=== PATIENT | female | born 1940 | race Caucasian/White ===

== ENCOUNTER 2016-08-23 16:39 | Emergency (ER) | payer MEDICARE, OTHER ==
[~2016-08-23] VITALS: Ht 170.2 cm; Wt 65.0 kg
[~2016-08-23 16:39] MED LIST: AMLO2.5T PO; ASPI81 PO; ATOR40TA PO; NITR.4 SL; PLAV75TA PO; VENL75XR PO; ZOVI200C24 PO
[2016-08-23 16:41] VITALS: BP 208/81; PULSE 56; RESP 14; TEMP 98.1; O2SAT 97
== END 2016-08-23 18:45 | disposition left against medical advice (07) ==
LOC: NED 16:39
DX: Z04.1 Encounter for examination and observation following transport accident (principal)
CPT/HCPCS: 99281

== ENCOUNTER → 2016-11-18 | Outpatient (CLI) | payer MEDICARE, OTHER ==
[~2016-11-18] MED LIST changes: +ASPI-110 PO; +ATOR40TA16 PO; +LIPI20TA PO; +LISI-515 PO; +NITR0.4S SL; +PLAV75TA29 PO; +ZOVI400T PO
[2016-11-18 13:13] LABS: HEMATOCRIT 39.3 % (35.0-46.0); MEAN CORPUSCULAR HEMOGLOBIN 33.4 PG (27.0-34.0); MEAN CORPUSCULAR HGB CONC 34.4 % (32.0-36.0); PLATELET COUNT 243 TH/MM3 (150-450); RED BLOOD COUNT 4.05 MIL/MM3 (4.00-5.30); RED CELL DISTRIBUTION WIDTH 13.6 % (11.6-17.2); REVIEW FLAG FINAL; WHITE BLOOD COUNT 4.5 TH/MM3 (4.0-11.0)
[2016-11-18 13:20] LABS: ANION GAP 5 MEQ/L (5-15); AST (GOT) 30 U/L (15-37); BICARBONATE 29.8 MEQ/L (21.0-32.0); BLOOD UREA NITROGEN 16 MG/DL (7-18); CHLORIDE 102 MEQ/L (98-107); GLOMERULAR FILTRATION RATE 66 ML/MIN (>89); GLUCOSE,FASTING 80 MG/DL (74-99); POTASSIUM 4.2 MEQ/L (3.5-5.1); SODIUM (NA) 137 MEQ/L (136-145)
[2016-11-18 13:25] LABS: ALKALINE PHOSPHATASE 107 U/L (45-117); ALT (GPT) 37 U/L (10-53); HDL CHOLESTEROL 71.3 MG/DL (40.0-60.0); LDL CHOLESTEROL 89 MG/DL (0-99); TOTAL BILIRUBIN ADULT 0.5 MG/DL (0.2-1.0)
== END ==
LOC: PLAB 10:51
PROVIDERS: ATTEND Family Medicine
DX: E78.2 Mixed hyperlipidemia (principal); Z86.2 Personal history of diseases of the blood and blood-forming organs and certain disorders involving the immune mechanism
CPT/HCPCS: 36415; 80053; 80061; 85027

== ENCOUNTER 2016-12-12 12:48 | Observation (INO) | payer MEDICARE, OTHER ==
[~2016-12-12] VITALS: Ht 172.7 cm; Wt 68.4 kg
[2016-12-12] VITALS (8 sets, daily range): BP systolic 130–172; BP diastolic 68–98; PULSE 49–98; RESP 18–20; TEMP 96–98.3; O2SAT 97–98
[~2016-12-12 12:48] MED LIST changes: -ASPI-110 PO; -ATOR40TA16 PO; -LIPI20TA PO; -LISI-515 PO; -NITR0.4S SL; -PLAV75TA29 PO; -ZOVI400T PO
[2016-12-12] MEDS ORDERED: ASPI-110 PO (13:07)
[2016-12-12] MEDS ORDERED: LISI-515 PO (13:07)
[2016-12-12] MEDS ORDERED: ATOR40TA16 PO (13:07)
[2016-12-12] MEDS ORDERED: NITR0.4S SL (13:07)
[2016-12-12] MEDS ORDERED: ZOVI400T PO (13:07)
[2016-12-12] MEDS ORDERED: VENL75XR PO (13:07)
[2016-12-12] MEDS ORDERED: PLAV75TA29 PO (13:07)
--- NOTE | 2016-12-12 13:14 | PD ---
HPI Chief Complaint: Chest Pain Time Seen by Provider: 13:04 Travel History International Travel<30 days: No Contact w/Intl Traveler<30days: No Traveled to known affect area: No History of Present Illness HPI 75yo F with PMH of CAD s/p cardiac stent, Takasubo here with chest tightness that started about an hour ago. Pt took one sublingual nitro which helped with the chest pain. Pain is left sided, constant and nonradiating. Denies any fever, sob, cough, n/v, abdominal pain, focal weakness or numbness. PFSH Past Medical History Hx Anticoagulant Therapy: Yes Arthritis: Yes Anxiety: Yes Depression: Yes Heart Rhythm Problems: Yes (BRADYCARDIA) Cancer: No Cardiac Catheterization: Yes (2005, 2006, 2011, 05/01) Cardiovascular Problems: Yes High Cholesterol: Yes Chest Pain: Yes Diabetes: No Endocrine: No Gastrointestinal Disorders: Yes (intermit acid reflux) Hiatal Hernia: Yes Hypertension: Yes Psychiatric: Yes Respiratory: Yes (pulm htn) Thyroid Disease: No Influenza Vaccination: Yes ?: Not Past Surgical History Abdominal Surgery: Yes Cardiac Surgery: No Ear Surgery: Yes Endocrine Surgery: No Eye Surgery: No Genitourinary Surgery: Yes (CYSTOCELE, RECTOCELE 1997) Gynecologic Surgery: Yes (HYSTERECTOMY) Hysterectomy: Yes (1982) Neurologic Surgery: No Oral Surgery: No Thoracic Surgery: No Other Surgery: Yes Social History Alcohol Use: No Tobacco Use: No Substance Use: No Allergies-Medications (Allergen,Severity, Reaction): Coded Allergies: No Known Allergies (Verified , 12/12/16) Reported Meds & Prescriptions Reported Meds & Active Scripts Active Reported Effexor XR 24 HR (Venlafaxine HCl) 75 Mg Cap 75 Mg PO HS Aspirin 81 (Aspirin) 81 Mg Tabdr 81 Mg PO DAILY Zovirax (Acyclovir) 400 Mg Tab 400 Mg PO TID Plavix (Clopidogrel Bisulfate) 75 Mg Tab 75 Mg PO DAILY Atorvastatin (Atorvastatin Calcium) 40 Mg Tab 40 Mg PO HS Nitrostat SL (Nitroglycerin) 0.4 Mg Subl 0.4 Mg SL DIRECTED PRN 1 tablet under the tongue as needed for chest pain. Repeat every 5 minutes for a total of 3 DOSES or call 911 if NO relief. Lisinopril 20 Mg Tab 20 Mg PO DAILY Review of Systems Except as stated in HPI: all other systems reviewed are Neg Physical Exam Narrative GENERAL: 75yo F not in distress. SKIN: Focused skin assessment warm/dry. HEAD: Atraumatic. Normocephalic. EYES: Pupils equal and round. No scleral icterus. No injection or drainage. ENT: No nasal bleeding or discharge. Mucous membranes pink and moist. NECK: Trachea midline. No JVD. CARDIOVASCULAR: Regular rate and rhythm. No murmur appreciated. RESPIRATORY: No accessory muscle use. Clear to auscultation. Breath sounds equal bilaterally. GASTROINTESTINAL: Abdomen soft, non-tender, nondistended. MUSCULOSKELETAL: No obvious deformities. No clubbing. No cyanosis. No edema. NEUROLOGICAL: Awake and alert. No obvious cranial nerve deficits. Motor grossly within normal limits. Normal speech. PSYCHIATRIC: Appropriate mood and affect; insight and judgment normal. Data Data Last Documented VS Vital Signs Date Time Temp Pulse Resp B/P Pulse Ox O2 Delivery O2 Flow Rate FiO2 12/12/16 15:24 58 18 144/73 98 Room Air 12/12/16 12:58 98.3 Orders Basic Metabolic Panel (Bmp) (12/12/16 13:04) Ckmb (Isoenzyme) Profile (12/12/16 13:04) Complete Blood Count With Diff (12/12/16 13:04) Magnesium (Mg) (12/12/16 13:04) Prothrombin Time / Inr (Pt) (12/12/16 13:04) Act Partial Throm Time (Ptt) (12/12/16 13:04) Troponin I (12/12/16 13:04) Chest, Single Ap (12/12/16 13:04) Ecg Monitoring (12/12/16 13:04) Bilateral Bp Monitoring (12/12/16 13:04) Iv Access Insert/Monitor (12/12/16 13:04) Oximetry (12/12/16 13:04) Oxygen Administration (12/12/16 13:04) Aspirin (Aspirin) (12/12/16 13:15) Sodium Chloride 0.9% Flush (Ns Flush) (12/12/16 13:15) CKMB (12/12/16 15:17) CKMB% (12/12/16 15:17) Admit Order (Ed Use Only) (12/12/16 15:56) Labs Laboratory Tests Test 5/29/17 5/29/17 13:05 15:17 White Blood Count 8.3 TH/MM3 Red Blood Count 4.31 MIL/MM3 Hemoglobin 14.3 GM/DL Hematocrit 41.4 % Mean Corpuscular Volume 96.2 FL Mean Corpuscular Hemoglobin 33.2 PG Mean Corpuscular Hemoglobin 34.5 % Concent Red Cell Distribution Width 12.3 % Platelet Count 273 TH/MM3 Mean Platelet Volume 8.2 FL Neutrophils (%) (Auto) 66.4 % Lymphocytes (%) (Auto) 22.7 % Monocytes (%) (Auto) 8.0 % Eosinophils (%) (Auto) 1.9 % Basophils (%) (Auto) 1.0 % Neutrophils # (Auto) 5.4 TH/MM3 Lymphocytes # (Auto) 1.9 TH/MM3 Monocytes # (Auto) 0.7 TH/MM3 Eosinophils # (Auto) 0.2 TH/MM3 Basophils # (Auto) 0.1 TH/MM3 CBC Comment DIFF FINAL Differential Comment Prothrombin Time 10.4 SEC Prothromb Time International 0.9 RATIO Ratio Activated Partial 24.8 SEC Thromboplast Time Sodium Level 137 MEQ/L Potassium Level 4.1 MEQ/L Chloride Level 104 MEQ/L Carbon Dioxide Level 26.1 MEQ/L Anion Gap 7 MEQ/L Blood Urea Nitrogen 18 MG/DL Creatinine 0.77 MG/DL Estimat Glomerular Filtration 73 ML/MIN Rate Random Glucose 86 MG/DL Calcium Level 8.8 MG/DL Magnesium Level 2.4 MG/DL Total Creatine Kinase 107 U/L Creatine Kinase MB 3.3 NG/ML Troponin I LESS THAN 0.02 NG/ML MDM Medical Decision Making Medical Screen Exam Complete: Yes Emergency Medical Condition: Yes Interpretation(s) EKG: Tachycardia at 109bpm. Normal axis. TWI V2. Mild ST depression in V4-V6. Differential Diagnosis ACS vs. Pneumonia vs. GERD vs. musculoskeletal pain Narrative Course 75yo F with CAD s/p stent (follows with Dr. Albarran) presents to the ED with chest tightness. Pt's pain resolved after 1 sublingual nitro. Pt had last cardiac cath 04/2016 and plan was to do stress test this summer. Pt has not had recent stress test. Labs reviewed, no leukocytosis. Troponin negative. CXR showed no acute cardiopulmonary abnormality. Pt has been chest pain free since her nitro. Pt given aspirin 325mg PO here. Discussed with Dr. Mora and accepted to his service for chest pain work up with serial EKG and cardiac enzymes. Likely cardiac stress test. Pt agrees with plan. Diagnosis Primary Impression: Chest pain Qualified Code: R07.9 - Chest pain, unspecified type Admitting Information Admitting Physician Requests: Sally Hicks DO December 12, 2016 13:14
[2016-12-12] MEDS ORDERED: ASPIRIN 325 MG TAB PO ONE (13:15)
[2016-12-12] MEDS: SODIUM CHLORIDE 0.9% FLUSH 10 ML FLUSH IVF PRN ×2 (13:18→21:26)
[2016-12-12 13:19] LABS: AUTOMATED NEUTROPHIL # 5.4 TH/MM3 (1.8-7.7); BASOPHIL # 0.1 TH/MM3 (0-0.2); EOSINOPHIL # 0.2 TH/MM3 (0-0.4); EOSINOPHIL % 1.9 % (0.0-4.0); HEMATOCRIT 41.4 % (35.0-46.0); HEMO FLAGS DIFF FINAL; LYMPH % 22.7 % (9.0-44.0); LYMPHOCYTE # 1.9 TH/MM3 (1.0-4.8); MEAN CELL VOLUME 96.2 FL (80.0-100.0); MEAN CORPUSCULAR HEMOGLOBIN 33.2 PG (27.0-34.0); MEAN CORPUSCULAR HGB CONC 34.5 % (32.0-36.0); NEUT % 66.4 % (16.0-70.0); PLATELET COUNT 273 TH/MM3 (150-450); RED BLOOD COUNT 4.31 MIL/MM3 (4.00-5.30); RED CELL DISTRIBUTION WIDTH 12.3 % (11.6-17.2); WHITE BLOOD COUNT 8.3 TH/MM3 (4.0-11.0)
[2016-12-12 13:43] LABS: APTT (PATIENT) 24.8 SEC (24.3-30.1); INTERNATIONAL NORMALIZED RATIO 0.9 RATIO; PROTHROMBIN TIME - PATIENT 10.4 SEC (9.8-11.6)
--- NOTE | 2016-12-12 14:00 | RADHPO ---
EXAM DATE/TIME: 12/12/2016 13:45 [facility] COMPARISON: CHEST SINGLE AP, May 09, 2016, 11:23. INDICATIONS : Chest pain. MEDICAL HISTORY : Cardiovascular disease. 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 ENCOUNTER: Initial ACUITY: 1 day PAIN SCORE: 0/10 LOCATION: FINDINGS: Portable AP view of the chest demonstrates a normal-sized cardiac silhouette. Lungs are hyperinflated . EKG lines overlie the patient. No effusion, consolidation, or pneumothorax is visualized. Bones and soft tissues demonstrate no acute finding. CONCLUSION: No acute cardiopulmonary abnormality is identified. Yogi Wisdom MD on December 12, 2016 at 13:57 Board Certified Radiologist. This report was verified electronically.
[2016-12-12 15:37] LABS: CHLORIDE 104 MEQ/L (98-107); POTASSIUM 4.1 MEQ/L (3.5-5.1); SODIUM (NA) 137 MEQ/L (136-145)
[2016-12-12 15:40] LABS: ANION GAP 7 MEQ/L (5-15); BICARBONATE 26.1 MEQ/L (21.0-32.0); BLOOD UREA NITROGEN 18 MG/DL (7-18); MAGNESIUM 2.4 MG/DL (1.5-2.5)
[2016-12-12 15:44] LABS: GLOMERULAR FILTRATION RATE 73 ML/MIN (>89)
[2016-12-12 15:47] LABS: CREATINE KINASE 107 U/L (26-192)
[2016-12-12 15:59] LABS: CKMB 3.3 NG/ML (0.5-3.6)
[2016-12-12] MEDS ORDERED: ONDANSETRON HCL 4 MG/2 ML VIAL IV PUSH PRN (16:30)
--- NOTE | 2016-12-12 16:30 | HHI.HP ---
[facility] Service [facility] Primary Care Physician Jose Mackenzie MD Admission Diagnosis Chest pain Diagnoses: (1) Chest pain Diagnosis: Principal Chief Complaint: chest pain Travel History International Travel<30 Days: No Contact w/Intl Traveler <30 Da: No Traveled to Known Affected Are: No History of Present Illness patient is a 75 y/o female with history of CAD- s/p stent placement in 2015 presented to ER with chest pain. she describes the pain as pressure. the pain started this morning. pain was midsternal. pain was not associated with nausea, vomiting or diaphoresis. pain had some radiation to the jaws. she says that she took one nitro which helped her with the pain but she didn't get complete relief at the time. she's being followed up by . she was pain free at the time of my evaluation. Review of Systems Constitutional: DENIES: Fever, Weight loss, Chills, Night Sweats Eyes: DENIES: Blurred vision, Diplopia, Vision loss, Double Vision Ears, nose, mouth, throat: DENIES: Tinnitus, Vertigo, Throat pain, Epistaxis Respiratory: DENIES: Apneas, Cough, Snoring, Wheezing, Hemoptysis, Sputum production, Shortness of breath Cardiovascular: COMPLAINS OF: Chest pain, DENIES: Palpitations, Syncope, Dyspnea on Exertion, PND, Lower Extremity Edema, Orthopnea, Claudication Gastrointestinal: DENIES: Abdominal pain, Black stools, Bloody stools, Constipation, Diarrhea, Nausea, Vomiting, Difficulty Swallowing, Anorexia Genitourinary: DENIES: Urinary frequency, Urgency, Hematuria, Dysuria Musculoskeletal: DENIES: Joint pain, Muscle aches, Stiffness, Joint Swelling Integumentary: DENIES: Rash Neurologic: DENIES: Abnormal gait, Headache, Localized weakness, Paresthesias, Seizures, Speech Problems, Tremor, Poor Balance Psychiatric: DENIES: Anxiety, Confusion, Mood changes, Depression, Hallucinations, Agitation, Suicidal Ideation, Homicidal Ideation, Delusions Past Family Social History Past Medical History CAD hypertension Past Surgical History cystocele/ rectocele surgery Reported Medications Effexor XR 24 HR (Venlafaxine HCl) 75 Mg Cap 75 Mg PO HS Aspirin 81 (Aspirin) 81 Mg Tabdr 81 Mg PO DAILY Zovirax (Acyclovir) 400 Mg Tab 400 Mg PO TID Plavix (Clopidogrel Bisulfate) 75 Mg Tab 75 Mg PO DAILY Atorvastatin (Atorvastatin Calcium) 40 Mg Tab 40 Mg PO HS Nitrostat SL (Nitroglycerin) 0.4 Mg Subl 0.4 Mg SL DIRECTED PRN 1 tablet under the tongue as needed for chest pain. Repeat every 5 minutes for a total of 3 DOSES or call 911 if NO relief. Lisinopril 20 Mg Tab 20 Mg PO DAILY Allergies: Coded Allergies: No Known Allergies (Verified , 12/12/16) Active Ordered Medications Current Medications Aspirin (Aspirin) 325 mg ONCE ONCE PO Last administered on 12/12/16 13:17; Start 12/12/16 at 13:15; Stop 12/12/16 at 13:16; Status DC Sodium Chloride (NS Flush) 2 ml UNSCH PRN IVF FLUSH AFTER USING IV ACCESS Last administered on 12/12/16 13:18; Start 12/12/16 at 13:15 Family History heart attack in father at 59. Social History doesn't smoke. drinks occasionally. Physical Exam Vital Signs Vital Signs Date Time Temp Pulse Resp B/P Pulse Ox O2 Delivery O2 Flow Rate FiO2 12/12/16 15:24 58 18 144/73 98 Room Air 12/12/16 13:13 77 130/81 130/71 12/12/16 13:09 97 Room Air 12/12/16 13:09 97 Room Air 12/12/16 13:00 98 Room Air 12/12/16 12:58 98.3 98 18 139/98 98 Physical Exam GENERAL: This is a well-nourished, well-developed patient, in no apparent distress. SKIN: No rashes, ecchymoses or lesions. Cool and dry. HEAD: Atraumatic. Normocephalic. No temporal or scalp tenderness. EYES: Pupils equal round and reactive. Extraocular motions intact. No scleral icterus. No injection or drainage. ENT: Nose without bleeding, purulent drainage or septal hematoma. Throat without erythema, tonsillar hypertrophy or exudate. Uvula midline. Airway patent. NECK: Trachea midline. No JVD or lymphadenopathy. Supple, nontender, no meningeal signs. CARDIOVASCULAR: Regular rate and rhythm without murmurs, gallops, or rubs. RESPIRATORY: Clear to auscultation. Breath sounds equal bilaterally. No wheezes , rales, or rhonchi. GASTROINTESTINAL: Abdomen soft, non-tender, nondistended. No hepato-splenomegaly , or palpable masses. No guarding. MUSCULOSKELETAL: Extremities without clubbing, cyanosis, or edema. No joint tenderness, effusion, or edema noted. No calf tenderness. Negative Homans sign bilaterally. NEUROLOGICAL: Awake and alert. Cranial nerves II through XII intact. Motor and sensory grossly within normal limits. Five out of 5 muscle strength in all muscle groups. Normal speech. Laboratory Laboratory Tests Test 12/12/16 12/12/16 13:05 15:17 White Blood Count 8.3 Red Blood Count 4.31 Hemoglobin 14.3 Hematocrit 41.4 Mean Corpuscular Volume 96.2 Mean Corpuscular Hemoglobin 33.2 Mean Corpuscular Hemoglobin 34.5 Concent Red Cell Distribution Width 12.3 Platelet Count 273 Mean Platelet Volume 8.2 Neutrophils (%) (Auto) 66.4 Lymphocytes (%) (Auto) 22.7 Monocytes (%) (Auto) 8.0 Eosinophils (%) (Auto) 1.9 Basophils (%) (Auto) 1.0 Neutrophils # (Auto) 5.4 Lymphocytes # (Auto) 1.9 Monocytes # (Auto) 0.7 Eosinophils # (Auto) 0.2 Basophils # (Auto) 0.1 CBC Comment DIFF FINAL Differential Comment Prothrombin Time 10.4 Prothromb Time International 0.9 Ratio Activated Partial 24.8 Thromboplast Time Sodium Level 137 Potassium Level 4.1 Chloride Level 104 Carbon Dioxide Level 26.1 Anion Gap 7 Blood Urea Nitrogen 18 Creatinine 0.77 Estimat Glomerular Filtration 73 Rate Random Glucose 86 Calcium Level 8.8 Magnesium Level 2.4 Total Creatine Kinase 107 Creatine Kinase MB 3.3 Troponin I LESS THAN 0.02 Result Diagram: 12/12/16 1305 12/12/16 1517 Imaging Last Impressions Chest X-Ray 12/12/16 1304 Signed Impressions: Service Date/Time: Monday, December 12, 2016 13:45 - CONCLUSION: No acute cardiopulmonary abnormality is identified. Yogi Wisdom MD EKG; junctional rhythm with no acute ST-T changes Assessment and Plan Assessment and Plan A/P - chest pain with history of CAD and stent placement resume aspirin, plavix, statin and lisinopril- will trend the cardiac enzymes and possible stress test in am if stable- will consult cardiology. -hypertension; resume home meds -DVT prophylaxis with SCD's Discussed Condition With ER physician and the patient. Problem Qualifiers (1) Chest pain: Qualified Code: R07.9 - Chest pain, unspecified type Zaid Walker MD December 12, 2016 16:30
[2016-12-12] MEDS ORDERED: ACETAMINOPHEN 325 MG TAB PO PRN (16:45)
[2016-12-12] MEDS ORDERED: NITROGLYCERIN 0.3 MG SL 100 TABS/BTL SL PRN (16:45)
[2016-12-12] MEDS ORDERED: NITROGLYCERIN 0.4 MG SL 25 TABS/BTL SL PRN (16:49)
[2016-12-12] MEDS: SODIUM CHLOR 0.9% 1000 ML INJ 1,000 ML IV SCH (16:56)
[2016-12-12] MEDS ORDERED: ACYCLOVIR 200 MG CAP PO SCH (18:00)
[2016-12-12] MEDS: ATORVASTATIN 40 MG TAB PO SCH (21:26)
[2016-12-12] MEDS: VENLAFAXINE HCL XR 75 MG CAP PO SCH (21:26)
[2016-12-12] MEDS ORDERED: LIPI20TA PO (21:41)
[2016-12-13] VITALS (8 sets, daily range): BP systolic 145–180; BP diastolic 79–97; PULSE 44–51; RESP 20–21; TEMP 97.2–97.9; O2SAT 94–99
--- NOTE | 2016-12-13 07:57 | HHI.PR ---
Subjective Remarks resting comfortably with no distress. denies chest pain or sob. no other complaints. Objective Vitals Vital Signs Date Time Temp Pulse Resp B/P Pulse Ox O2 Delivery O2 Flow Rate FiO2 12/13/16 00:00 97.5 50 20 149/86 96 12/12/16 20:06 49 12/12/16 19:15 96.0 50 20 172/88 97 12/12/16 19:10 67 20 145/68 98 12/12/16 15:24 58 18 144/73 98 Room Air 12/12/16 13:13 77 130/81 130/71 12/12/16 13:09 97 Room Air 12/12/16 13:09 97 Room Air 12/12/16 13:00 98 Room Air 12/12/16 12:58 98.3 98 18 139/98 98 I/O 12/12/16 12/12/16 12/12/16 12/13/16 12/13/16 12/13/16 07:00 15:00 23:00 07:00 15:00 23:00 Intake Total 1110 ml 715 ml 0 ml Balance 1110 ml 715 ml 0 ml Intake Oral 960 ml 0 ml IV Total 150 ml 715 ml # Voids 1 1 # Bowel Movements 0 0 Result Diagram: 12/12/16 1305 12/12/16 1517 Imaging Last Impressions Chest X-Ray 12/12/16 1304 Signed Impressions: Service Date/Time: Monday, December 12, 2016 13:45 - CONCLUSION: No acute cardiopulmonary abnormality is identified. Yogi Wisdom MD Objective Remarks GENERAL: This is a well-nourished, well-developed patient, in no apparent distress. CARDIOVASCULAR: Regular rate and regular rhythm without murmurs, gallops, or rubs. RESPIRATORY: Clear to auscultation. Breath sounds equal bilaterally. No wheezes , rales, or rhonchi. GASTROINTESTINAL: Abdomen soft, non-tender, nondistended. Normal, active bowel sounds MUSCULOSKELETAL: Extremities without clubbing, cyanosis, or edema. NEURO: Alert & Oriented x4 to person, place, time, situation. Moves all ext x4 Procedures none Medications and IVs Current Medications Aspirin (Aspirin) 325 mg ONCE ONCE PO Last administered on 12/12/16t 13:17; Start 12/12/16 at 13:15; Stop 12/12/16 at 13:16; Status DC Sodium Chloride 2 ml 2 ml UNSCH PRN IVF FLUSH AFTER USING IV ACCESS Last administered on 12/12/16 21:26; Start 12/12/16 at 13:15 Sodium Chloride (NS 1000 ml Inj) 1,000 ml @ 75 mls/hr [id number] IV Last administered on 12/12/16 16:56; Start 12/12/16 at 16:30 Ondansetron HCl (Zofran Inj) 4 mg Q8HR PRN IV PUSH NAUSEA; Start 12/12/16 at 16 :30 Aspirin (Ecotrin Ec) 81 mg DAILY PO ; Start 12/13/16 at 09:00; Status UNV Acyclovir (Zovirax) 400 mg TID PO ; Start 12/12/16 at 18:00; Status Hold Aspirin (Ecotrin Ec) 81 mg DAILY PO ; Start 12/13/16 at 09:00 Atorvastatin Calcium (Lipitor) 40 mg HS PO Last administered on 12/12/16 21:26 ; Start 12/12/16 at 21:00 Clopidogrel Bisulfate (Plavix) 75 mg DAILY PO ; Start 12/13/16 at 09:00 Lisinopril (Prinivil) 20 mg DAILY PO ; Start 12/13/16 at 09:00 Nitroglycerin (Nitrostat Sl) 0.3 mg Q5M PRN SL CHEST PAIN; Start 12/12/16 at 16 :45; Stop 12/12/16 at 16:50; Status DC Acetaminophen (Tylenol) 650 mg Q4H PRN PO FEVER/HEADACHE; Start 12/12/16 at 16: 45 Nitroglycerin (Nitrostat Sl) 0.4 mg Q5M PRN SL CHEST PAIN; Start 12/12/16 at 16 :49 Venlafaxine HCl (Effexor Xr) 75 mg HS PO Last administered on 12/12/16 21:26; Start 12/12/16 at 21:00 A/P Assessment and Plan - chest pain with history of CAD and stent placement resumed aspirin, plavix, statin and lisinopril- cardiac enzymes negative and the chest pain has resolved. consulted cardiology ; d/w today- for stress test. -hypertension; resumed home meds -DVT prophylaxis with SCD's Discharge Planning awaiting cardiology evaluation. Zaid Walker MD December 13, 2016 07:57 Zaid Walker MD December 13, 2016 07:57 Zaid Walker MD December 13, 2016 07:57
[2016-12-13] MEDS: SODIUM CHLOR 0.9% 1000 ML INJ 1,000 ML IV SCH (08:10)
[2016-12-13] MEDS: ASPIRIN EC 81 MG TABEC PO SCH (08:10)
[2016-12-13] MEDS: LISINOPRIL 20 MG TAB PO SCH (08:11)
[2016-12-13] MEDS: CLOPIDOGREL 75 MG TAB PO SCH (08:11)
--- NOTE | 2016-12-13 08:30 | EKG ---
Date Performed: 12/12/2016 Time Performed: 12:48:50 PTAGE: 75 years EKG: Possible sinus tachycardia Low QRS voltage Abnormal ECG PREVIOUS TRACING : 05/09/2016 12.48 Compared to previous tracing, heart rate has increased, PAC s are no longer present. DOCTOR: Ish Wheatley Interpretating Date/Time 12/13/2016 08:28:58
[2016-12-13] MEDS ORDERED: ASPIRIN EC 81 MG TABEC PO SCH (09:00)
[2016-12-13] MEDS ORDERED: REGADENOSON INJ 0.4 MG/5 ML SYR IV ONE (12:29)
--- NOTE | 2016-12-13 18:06 | RADHPO ---
EXAM DATE/TIME: 12/13/2016 12:34 [facility] COMPARISON: No previous studies available for comparison. INDICATIONS : Substernal chest pain without radiation. Angina. Coronary artery disease. DOSE: 25.4 mCi Tc99m Myoview at stress. 8.5 mCi Tc99m Myoview at rest. 0.4 mg Lexiscan STRESS SYMPTOMS: Headache, dyspnea and chest pain. EJECTION FRACTION: 67% MEDICAL HISTORY : Hypertension. SURGICAL HISTORY : Coronary artery stent. Cystocele and rectocele surgery. ENCOUNTER: Initial ACUITY: 1 day PAIN SCALE: 6/10 LOCATION: Substernal chest TECHNIQUE: The patient underwent pharmacologic stress with infusion of prescribed dose. Continuous ECG tracing was monitored during stress. Gated SPECT imaging was performed after stress and conventional SPECT i maging was performed at rest. The examination was performed on a SPECT/CT scanner, both attenuation and non-corrected datasets were reviewed. FINDINGS: DISTRIBUTION: The maximum perfused segment at stress is in the inferior wall. PERFUSION STUDY: The pattern of perfusion at stress is within normal limits. GATED STUDY: There is intact wall motion and thickening without hypokinetic or dyskinetic segments. CONCLUSION: No reversible defects observed to suggest acute ischemia. RISK CATEGORY: Low Juan Morris Jr., MD on December 13, 2016 at 18:03 Board Certified Radiologist. This report was verified electronically.
[2016-12-13] MEDS: ATORVASTATIN 40 MG TAB PO SCH (20:05)
[2016-12-13] MEDS: VENLAFAXINE HCL XR 75 MG CAP PO SCH (20:05)
[2016-12-13] MEDS: SODIUM CHLORIDE 0.9% FLUSH 10 ML FLUSH IVF PRN (20:05)
[2016-12-14] VITALS: BP 171/70; PULSE 45; RESP 20; TEMP 96.8; O2SAT 96
[2016-12-14 04:00] VITALS: BP 170/78; PULSE 47; RESP 18; TEMP 96.9; O2SAT 98
--- NOTE | 2016-12-14 06:52 | MB ---
cc: BRITTA ALBARRAN M.D. DATE OF CONSULTATION 12/13/2016 REASON FOR CONSULTATION Thank you Dr. Walker for asking me to see this very pleasant 75-year-old white female who presents with chest pain. She has a prior history of stent placement. She is well-known to me. Last April she received stents. PAST MEDICAL HISTORY Positive for: 1. Coronary artery disease 2. Hypertension 3. Cystocele 4. Rectocele 5. Stent placement PRIOR MEDICATIONS 1. Effexor 2. Aspirin 3. Zovirax 4. Aspirin 5. Atorvastatin 6. Nitrostat 7. Lisinopril ALLERGIES None known. FAMILY HISTORY Positive for father having a heart attacks at 59. SOCIAL HISTORY Nonsmoker, rare alcohol. PHYSICAL EXAM On examination pulse was 50, blood pressure 180/79, respirations 20. EYES: Show no xanthelasma. EARS, NOSE, AND THROAT: Mouth showed no cyanosis or pallor. NECK: Showed JVD. HEART: She had two heart sounds, no murmurs. CHEST: Clear. ABDOMEN: Soft without hepatosplenomegaly. EXTREMITIES: no edema. NEUROLOGIC: Grossly intact. SKIN: Exam was intact. LABORATORY TEST White count 8.3, hemoglobin 14.3, hematocrit 41.4. Sodium 137, potassium 4.1, creatinine 0.77, troponin x3 was negative. INR was 0.9. EKG was reported as showing possible sinus tachycardia, myocardial perfusion scan was negative for ischemia. Chest x-ray was negative. ASSESSMENT/PLAN At this point, the patient appears to have a negative nuclear stress test and negative troponins. In view of this at this point, she can be discharged. Should she has any recurrence of chest pain, she is urged to go directly to the emergency room with a possible repeat heart catheterization. Thank you kindly for asking us to see this very pleasant lady. Britta Albarran MD, FRCP,[facility] /7:33 PM /6:[address] [facility]
[2016-12-14 07:58] VITALS: BP 178/92; PULSE 54; RESP 20; TEMP 96.7; O2SAT 99
[2016-12-14] MEDS: CLOPIDOGREL 75 MG TAB PO SCH (08:06)
[2016-12-14] MEDS: LISINOPRIL 20 MG TAB PO SCH (08:06)
[2016-12-14] MEDS: ASPIRIN EC 81 MG TABEC PO SCH (08:06)
[2016-12-14] MEDS: SODIUM CHLORIDE 0.9% FLUSH 10 ML FLUSH IVF PRN (08:06)
--- NOTE | 2016-12-14 08:29 | HHI.PR ---
Subjective Remarks resting comfortably with no distress. no chest pain or sob. no new complaints. Objective Vitals Vital Signs Date Time Temp Pulse Resp B/P Pulse Ox O2 Delivery O2 Flow Rate FiO2 12/14/16 07:58 96.7 54 20 178/92 99 12/14/16 04:00 96.9 47 18 170/78 98 12/14/16 00:00 96.8 45 20 171/70 96 12/13/16 20:17 49 12/13/16 20:00 97.4 46 20 162/83 94 12/13/16 16:00 97.9 50 20 180/79 99 12/13/16 15:11 44 12/13/16 12:00 97.3 50 20 145/83 97 I/O 12/13/16 12/13/16 12/13/16 12/14/16 12/14/16 12/14/16 07:00 15:00 23:00 07:00 15:00 23:00 Intake Total 715 ml 450 ml 240 ml 240 ml Balance 715 ml 450 ml 240 ml 240 ml Intake Oral 0 ml 240 ml 240 ml IV Total 715 ml 450 ml # Voids 1 1 1 # Bowel Movements 0 0 Result Diagram: 12/12/16 1305 12/12/16 1517 Imaging Last Impressions Myocardial Perfusion Scan Nuc Med 12/13/16 0000 Signed Impressions: Service Date/Time: Tuesday, December 13, 2016 12:34 - CONCLUSION: No reversible defects observed to suggest acute ischemia. RISK CATEGORY: Low Juan Morris Jr., MD Chest X-Ray 12/12/16 1304 Signed Impressions: Service Date/Time: Monday, December 12, 2016 13:45 - CONCLUSION: No acute cardiopulmonary abnormality is identified. Yogi Wisdom MD Objective Remarks GENERAL: This is a well-nourished, well-developed patient, in no apparent distress. CARDIOVASCULAR: Regular rate and regular rhythm without murmurs, gallops, or rubs. RESPIRATORY: Clear to auscultation. Breath sounds equal bilaterally. No wheezes , rales, or rhonchi. GASTROINTESTINAL: Abdomen soft, non-tender, nondistended. Normal, active bowel sounds MUSCULOSKELETAL: Extremities without clubbing, cyanosis, or edema. NEURO: Alert & Oriented x4 to person, place, time, situation. Moves all ext x4 Procedures none Medications and IVs Current Medications Aspirin (Aspirin) 325 mg ONCE ONCE PO Last administered on 12/12/16 13:17; Start 12/12/16 at 13:15; Stop 12/12/16 at 13:16; Status DC Sodium Chloride 2 ml 2 ml UNSCH PRN IVF FLUSH AFTER USING IV ACCESS Last administered on 12/14/16 08:06; Start 12/12/16 at 13:15 Sodium Chloride (NS 1000 ml Inj) 1,000 ml @ 75 mls/hr [id number] IV Last administered on 12/13/16 08:10; Start 12/12/16 at 16:30; Stop 12/13/16 at 15:52 ; Status DC Ondansetron HCl (Zofran Inj) 4 mg Q8HR PRN IV PUSH NAUSEA; Start 12/12/16 at 16 :30 Aspirin (Ecotrin Ec) 81 mg DAILY PO ; Start 12/13/16 at 09:00; Status UNV Acyclovir (Zovirax) 400 mg TID PO ; Start 12/12/16 at 18:00; Status Hold Aspirin (Ecotrin Ec) 81 mg DAILY PO Last administered on 12/14/16 08:06; Start 12/13/16 at 09:00 Atorvastatin Calcium (Lipitor) 40 mg HS PO Last administered on 12/13/16 20:05 ; Start 12/12/16 at 21:00 Clopidogrel Bisulfate (Plavix) 75 mg DAILY PO Last administered on 12/14/16 08 :06; Start 12/13/16 at 09:00 Lisinopril (Prinivil) 20 mg DAILY PO Last administered on 12/14/16 08:06; Start 12/13/16 at 09:00 Nitroglycerin (Nitrostat Sl) 0.3 mg Q5M PRN SL CHEST PAIN; Start 12/12/16 at 16 :45; Stop 12/12/16 at 16:50; Status DC Acetaminophen (Tylenol) 650 mg Q4H PRN PO FEVER/HEADACHE; Start 12/12/16 at 16: 45 Nitroglycerin (Nitrostat Sl) 0.4 mg Q5M PRN SL CHEST PAIN; Start 12/12/16 at 16 :49 Venlafaxine HCl (Effexor Xr) 75 mg HS PO Last administered on 12/13/16 20:05; Start 12/12/16 at 21:00 Regadenoson (Lexiscan Inj) 0.4 mg STK-MED ONCE IV Last administered on 12:29; Start 12/13/16 at 12:29; Stop 12/13/16 at 12:30; Status DC A/P Assessment and Plan - chest pain with history of CAD and stent placement resumed aspirin, plavix, statin and lisinopril- cardiac enzymes negative and the chest pain has resolved. stress test negative- cardiology consult appreciated and cleared for discharge. -hypertension; resumed home meds- f/u as outpatient. -DVT prophylaxis with SCD's Discharge Planning dc home today with f/u with pcp and cardiology. see med list. d/w the patient. Zaid Walker MD December 14, 2016 08:29
--- NOTE | 2016-12-14 08:29 | HHI.DS ---
Discharge Summary Admission Date December 12, 2016 at 15:56 Discharge Date: December 14, 2016 Admitting Diagnosis Chest pain (1) Chest pain ICD Code: R07.9 Diagnosis: Principal Procedures none Brief History - From Admission patient is a 75 y/o female with history of CAD- s/p stent placement in 2015 presented to ER with chest pain. she describes the pain as pressure. the pain started this morning. pain was midsternal. pain was not associated with nausea, vomiting or diaphoresis. pain had some radiation to the jaws. she says that she took one nitro which helped her with the pain but she didn't get complete relief at the time. she's being followed up by . she was pain free at the time of my evaluation. CBC/BMP: 12/12/16 1305 12/12/16 1517 Significant Findings Laboratory Tests Test 12/12/16 12/12/16 12/13/16 15:17 22:40 03:10 Estimat Glomerular Filtration 73 ML/MIN (>89) Rate Troponin I LESS THAN 0.02 LESS THAN 0.02 LESS THAN 0.02 NG/ML NG/ML NG/ML (0.02-0.05) (0.02-0.05) (0.02-0.05) Imaging Last Impressions Myocardial Perfusion Scan Nuc Med 12/13/16 0000 Signed Impressions: Service Date/Time: Tuesday, December 13, 2016 12:34 - CONCLUSION: No reversible defects observed to suggest acute ischemia. RISK CATEGORY: Low Juan Morris Jr., MD Chest X-Ray 12/12/16 1304 Signed Impressions: Service Date/Time: Monday, December 12, 2016 13:45 - CONCLUSION: No acute cardiopulmonary abnormality is identified. Yogi Wisdom MD PE at Discharge GENERAL: This is a well-nourished, well-developed patient, in no apparent distress. CARDIOVASCULAR: Regular rate and regular rhythm without murmurs, gallops, or rubs. RESPIRATORY: Clear to auscultation. Breath sounds equal bilaterally. No wheezes , rales, or rhonchi. GASTROINTESTINAL: Abdomen soft, non-tender, nondistended. Normal, active bowel sounds MUSCULOSKELETAL: Extremities without clubbing, cyanosis, or edema. NEURO: Alert & Oriented x4 to person, place, time, situation. Moves all ext x4 Hospital Course - chest pain with history of CAD and stent placement resumed aspirin, plavix, statin and lisinopril- cardiac enzymes negative and the chest pain has resolved. stress test negative- cardiology consult appreciated and cleared for discharge. -hypertension; resumed home meds -DVT prophylaxis with SCD's Pt Condition on Discharge: Good Discharge Disposition: Discharge Home Discharge Time: <= 30 minutes Discharge Instructions DIET: Follow Instructions for: Heart Healthy Diet Activities you can perform: Regular-No Restrictions Follow up Referrals: Cardiology PCP Follow-up Continued Medications: Acyclovir (Zovirax) 400 Mg Tab 200 MG PO DAILY PRN VIRAL Ref [address] (Aspirin 81) 81 Mg Tabdr 81 MG PO DAILY Ref 0 TAB Atorvastatin (Lipitor) 20 Mg Tab 20 MG PO DAILY Cholesterol Management #30 Ref 0 TAB Clopidogrel (Plavix) 75 Mg Tab 75 MG PO DAILY Blood Clot Prevention #30 Ref 0 TAB Lisinopril (Lisinopril) 20 Mg Tab 20 MG PO DAILY #30 Ref 0 TAB Nitroglycerin SL (Nitrostat SL) 0.4 Mg Subl 0.4 MG SL DIRECTED 1 tablet under the tongue as needed for chest pain. Repeat every 5 minutes for a total of 3 DOSES or call 911 if NO relief. PRN CHEST PAIN #100 Ref 0 TAB.SL Venlafaxine ER 24 HR (Effexor XR 24 HR) 75 Mg Cap 75 MG PO HS #30 Ref 0 CAP Zaid Walker MD December 14, 2016 08:29
--- NOTE | 2016-12-14 08:29 | HHI.DCPOC ---
Discharge Care Plan Diagnosis: (1) Chest pain Your Health Problems Are: Chest Pain Goals to Promote Your Health * To prevent worsening of your condition and complications * To maintain your health at the optimal level Directions to Meet Your Goals Take your medications as prescribed Follow your dietary instruction Follow activity as directed Keep your appointments as scheduled Take your immunizations and boosters as scheduled If your symptoms worsen call your PCP, if no PCP go to Urgent Care Center or Emergency Room Smoking is Dangerous to Your Health. Avoid second hand smoke Call the 24-hour hour crisis hotline for domestic abuse at Zaid Walker MD December 14, 2016 08:29
== END 2016-12-14 10:23 | disposition home or self-care (01) ==
LOC: PHED 12:48 → PHEDA 15:56 → PH3A 19:00
PROVIDERS: ADMIT Internal Medicine; ATTEND Internal Medicine
DX: R07.89 Other chest pain (principal); I25.10 Atherosclerotic heart disease of native coronary artery without angina pectoris; I10 Essential (primary) hypertension; M19.90 Unspecified osteoarthritis, unspecified site; F41.9 Anxiety disorder, unspecified; F32.9 Major depressive disorder, single episode, unspecified; E78.00 Pure hypercholesterolemia, unspecified; K21.9 Gastro-esophageal reflux disease without esophagitis; Z95.5 Presence of coronary angioplasty implant and graft; Z79.82 Long term (current) use of aspirin; Z79.02 Long term (current) use of antithrombotics/antiplatelets; Z82.49 Family history of ischemic heart disease and other diseases of the circulatory system
CPT/HCPCS: 71010; 78452; 80048; 82550; 82552; 83735; 84484; 85025; 85610; 85730; 93005; 93017; 99285; A9502; G0378; J2785; J7030

== ENCOUNTER → 2017-05-04 | Outpatient (CLI) | payer MEDICARE, OTHER ==
[~2017-05-04] MED LIST changes: -AMLO2.5T PO; +ASPI-110 PO; -ASPI81 PO; -ATOR40TA PO; +LIPI20TA PO; +LISI-515 PO; -NITR.4 SL; +NITR0.4S SL; -PLAV75TA PO; +PLAV75TA29 PO; -ZOVI200C24 PO; +ZOVI400T PO
[2017-05-04 14:19] LABS: INDIRECT BILIRUBIN 0.4 MG/DL (0.0-0.8); TOTAL BILIRUBIN ADULT 0.5 MG/DL (0.2-1.0)
== END ==
LOC: PLAB 09:29
PROVIDERS: ATTEND Internal Medicine Cardiovascular Disease
DX: E78.5 Hyperlipidemia, unspecified (principal)
CPT/HCPCS: 36415; 80061; 80076

== ENCOUNTER → 2017-08-08 | Outpatient (CLI) | payer MEDICARE, OTHER ==
[~2017-08-08] MED LIST changes: -ASPI-110 PO; +ASPI1TAB57 PO
[2017-08-08 13:10] LABS: HEMATOCRIT 38.8 % (35.0-46.0); HEMOGLOBIN 13.3 GM/DL (11.6-15.3); MEAN CELL VOLUME 96.8 FL (80.0-100.0); MEAN CORPUSCULAR HGB CONC 34.1 % (32.0-36.0); MEAN PLATELET VOLUME 8.4 FL (7.0-11.0); PLATELET COUNT 245 TH/MM3 (150-450); RED BLOOD COUNT 4.01 MIL/MM3 (4.00-5.30); RED CELL DISTRIBUTION WIDTH 13.5 % (11.6-17.2); WHITE BLOOD COUNT 4.2 TH/MM3 (4.0-11.0)
[2017-08-08 13:35] LABS: ALBUMIN 3.6 GM/DL (3.4-5.0); AST (GOT) 40 U/L (15-37); BICARBONATE 29.9 MEQ/L (21.0-32.0); BLOOD UREA NITROGEN 11 MG/DL (7-18); CALCIUM 8.9 MG/DL (8.5-10.1); CHLORIDE 99 MEQ/L (98-107); CHOLESTEROL 192 MG/DL (120-200); CREATININE 0.72 MG/DL (0.50-1.00); GLOMERULAR FILTRATION RATE 79 ML/MIN (>89); GLUCOSE,FASTING 88 MG/DL (74-99); SODIUM (NA) 134 MEQ/L (136-145)
[2017-08-08 13:40] LABS: ALKALINE PHOSPHATASE 141 U/L (45-117); ALT (GPT) 47 U/L (10-53); CHOLESTEROL/ HDL RATIO 2.96 RATIO; HDL CHOLESTEROL 64.7 MG/DL (40.0-60.0); LDL CHOLESTEROL 100 MG/DL (0-99); TOTAL BILIRUBIN ADULT 0.6 MG/DL (0.2-1.0); TOTAL PROTEIN 7.2 GM/DL (6.4-8.2); TRIGLYCERIDES 138 MG/DL (42-150)
== END ==
LOC: PLAB 11:00
PROVIDERS: ATTEND Internal Medicine Cardiovascular Disease
DX: E78.5 Hyperlipidemia, unspecified (principal); R79.89 Other specified abnormal findings of blood chemistry; I25.10 Atherosclerotic heart disease of native coronary artery without angina pectoris; I34.0 Nonrheumatic mitral (valve) insufficiency; E78.2 Mixed hyperlipidemia; Z95.5 Presence of coronary angioplasty implant and graft; Z86.2 Personal history of diseases of the blood and blood-forming organs and certain disorders involving the immune mechanism
CPT/HCPCS: 36415; 80053; 80061; 85027

== ENCOUNTER → 2017-12-06 | Outpatient (CLI) | payer MEDICARE, OTHER ==
[2017-12-06 14:33] LABS: AUTOMATED NEUTROPHIL # 2.3 TH/MM3 (1.8-7.7); BASOPHIL # 0.1 TH/MM3 (0-0.2); BASOPHIL % 1.5 % (0.0-2.0); EOSINOPHIL # 0.2 TH/MM3 (0-0.4); EOSINOPHIL % 5.1 % (0.0-4.0); HEMATOCRIT 38.8 % (35.0-46.0); LYMPH % 30.3 % (9.0-44.0); LYMPHOCYTE # 1.3 TH/MM3 (1.0-4.8); MEAN CELL VOLUME 98.8 FL (80.0-100.0); MEAN CORPUSCULAR HEMOGLOBIN 33.1 PG (27.0-34.0); MEAN CORPUSCULAR HGB CONC 33.5 % (32.0-36.0); MEAN PLATELET VOLUME 8.6 FL (7.0-11.0); MONOCYTE # 0.4 TH/MM3 (0-0.9); NEUT % 54.1 % (16.0-70.0); PLATELET COUNT 230 TH/MM3 (150-450); RED BLOOD COUNT 3.93 MIL/MM3 (4.00-5.30); RED CELL DISTRIBUTION WIDTH 13.1 % (11.6-17.2); WHITE BLOOD COUNT 4.2 TH/MM3 (4.0-11.0)
[2017-12-06 14:42] LABS: ALBUMIN 3.8 GM/DL (3.4-5.0); AST (GOT) 45 U/L (15-37); BICARBONATE 27.8 MEQ/L (21.0-32.0); BLOOD UREA NITROGEN 12 MG/DL (7-18); CALCIUM 8.9 MG/DL (8.5-10.1); CHLORIDE 103 MEQ/L (98-107); CREATININE 0.73 MG/DL (0.50-1.00); GLOMERULAR FILTRATION RATE 78 ML/MIN (>89); GLUCOSE,FASTING 90 MG/DL (74-99); SODIUM (NA) 139 MEQ/L (136-145)
[2017-12-06 14:43] LABS: CHOLESTEROL 160 MG/DL (120-200); TRIGLYCERIDES 83 MG/DL (42-150)
[2017-12-06 14:47] LABS: % SATURATION IRON PROFILE 30.1 % (20-50); ALKALINE PHOSPHATASE 100 U/L (45-117); ALT (GPT) 53 U/L (10-53); FERRITIN 106 NG/ML (8-252); HDL CHOLESTEROL 63.9 MG/DL (40.0-60.0); IRON (FE) 88 MCG/DL (50-170); LDL CHOLESTEROL 80 MG/DL (0-99); TOTAL BILIRUBIN ADULT 0.6 MG/DL (0.2-1.0); TOTAL IRON BINDING CAPACITY 293 MCG/DL (250-450)
== END ==
LOC: PLAB 10:38
PROVIDERS: ATTEND Family Medicine
DX: E78.2 Mixed hyperlipidemia (principal); Z86.2 Personal history of diseases of the blood and blood-forming organs and certain disorders involving the immune mechanism
CPT/HCPCS: 36415; 80053; 80061; 82728; 83540; 83550; 85025